=== PATIENT | male | born 1960 | race Two or more races ===

== ENCOUNTER 2019-03-25 21:20 | Emergency (ER) | payer BC ==
[~2019-03-25] VITALS: Ht 157.5 cm; Wt 90.7 kg
--- NOTE | 2019-03-25 21:35 | NUR ---
Pt provided urine sample, sent to lab.
--- NOTE | 2019-03-25 21:35 | NUR ---
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 Per patient, his urine was clear earlier today and after he went to the gym he started to have some blood in his urine. Pt is A/O x 4 and speaking in complete sentences.
[2019-03-25 22:05] LABS: *BLOOD, URINE 3+ (NEGATIVE); *CLARITY,URINE SLIGHTLY CLOUDY (CLEAR); *COLOR,URINE RED (YELLOW); *KETONES,URINE TRACE (NEGATIVE); NITRITE, URINE NEGATIVE (NEGATIVE); UGLUCOSE 2+ (NEGATIVE)
[2019-03-25 22:07] LABS: BASOPHILS # (AUTO) 0.1 K/uL (0.0-8.0); BASOPHILS % (AUTO) 0.8 % (0.0-2.0); EOSINOPHILS # (AUTO) 0.2 K/uL (0.0-0.7); EOSINOPHILS % (AUTO) 1.7 % (0.0-7.0); HEMOGLOBIN 14.2 g/dL (12.5-16.3); LYMPHOCYTES # (AUTO) 2.5 K/uL (20.0-40.0); LYMPHOCYTES % (AUTO) 23.5 % (20.5-51.5); MEAN CORPUSCULAR HEMOGLOBIN 31.2 uug (23.8-33.4); MEAN CORPUSCULAR HGB CONC 35 g/dL (32.5-36.3); MEAN CORPUSCULAR VOLUME 90.1 fL (73.0-96.2); MONOCYTES % (AUTO) 9.3 % (0.0-11.0); NEUTROPHILS # (AUTO) 6.8 K/uL (1.8-8.9); NEUTROPHILS % (AUTO) 64.7 % (38.5-71.5); PLATELET COUNT (AUTO) 189 K/uL (152-348); RED BLOOD CELL COUNT(AUTO) 4.54 MIL/uL (4.06-5.63); WHITE BLOOD COUNT (AUTO) 10.5 K/uL (3.6-10.2)
[2019-03-25 22:14] LABS: *BILIRUBIN,URIN 1+ (NEGATIVE); LEUKOCYTE ESTERASE ,URINE 2+ (NEGATIVE)
[2019-03-25 22:14] LABS: CREATININE 1.2 mg/dL (0.6-1.3); POTASSIUM 4.3 mmol/L (3.5-5.1)
[2019-03-25 22:20] LABS: BILIRUBIN,DIRECT 0.1 mg/dL (0.0-0.2); BILIRUBIN,TOTAL 0.4 mg/dL (0.2-1.0); TOTAL PROTEIN, SERUM 7.1 g/dL (6.4-8.2)
[2019-03-25 22:21] LABS: RBC,URINE TNTC /HPF (0-3); SQUAMOUS EPITHELIAL CELL,UR FEW /HPF (NONE SEEN)
[2019-03-25] MEDS ORDERED: IOHEXOL 300MG/ML 100 ML INFUS..BTL ONE (22:46)
[2019-03-25] MEDS ORDERED: SWABABLE VALVE TRANSFER SET EA MC ONE (22:46)
[2019-03-25] MEDS ORDERED: IOPAMIDOL 15 ML VIAL IT ONE (22:46)
[2019-03-25] MEDS ORDERED: CEphaleXIN 500 MG CAPSULE ONE (23:58)
[2019-03-26] MEDS ORDERED: CEphaleXIN 500 MG CAPSULE PO ONE
[2019-03-26] MEDS ORDERED: IV NORMAL SALINE 1000 ML BAG IV ONE
--- NOTE | 2019-03-26 01:07 | NUR ---
IV removed. Catheter intact and site benign. Pressure and 4x4 gauze applied to site. No bleeding noted. Patient discharged to home in stable conditon. Written and verbal after care instructions given. Patient verbalizes understanding of instructions.
[2019-03-26 01:10] VITALS: BP 152/84
== END 2019-03-26 01:12 | disposition home or self-care (01) ==
LOC: ER 21:23
DX: R31.0 Gross hematuria (principal); E11.9 Type 2 diabetes mellitus without complications
CPT/HCPCS: 36415; 74178; 80048; 80076; 81000; 81001; 85025; 85730; 87077; 87086; 87186; 99284; Q9967 ×2; A4663; J7030

== ENCOUNTER 2019-04-08 12:00 | Day surgery (SDC) | payer BC ==
[2019-04-08] MEDS ORDERED: PROPOFOL 200 MG/20 ML BOTTLE IV ONE (12:01)
[2019-04-08] MEDS ORDERED: [UNRECOGNIZED DRUG - OTHER] TP ONE (12:01)
[2019-04-08] MEDS ORDERED: SIMETHICONE 40 MG/0.6 ML, 30ML BOTTLE MC ONE (12:01)
[2019-04-08] MEDS ORDERED: IRR STERIL WATER FOR IRR 1000 ML BOTTLE IR ONE ×2 (12:01)
[2019-04-08] MEDS ORDERED: LIDOCAINE 2% 30 ML JELLY MC ONE (12:01)
[2019-04-08 12:35] LABS: EOSINOPHILS % (AUTO) 1.2 % (0.0-7.0); HEMOGLOBIN 15.2 g/dL (12.5-16.3)
[2019-04-08 12:36] LABS: *BILIRUBIN,URIN NEGATIVE (NEGATIVE); *BLOOD, URINE 3+ (NEGATIVE); *CLARITY,URINE SLIGHTLY CLOUDY (CLEAR); *COLOR,URINE YELLOW (YELLOW); *KETONES,URINE NEGATIVE (NEGATIVE); *UROBILINOGEN,URINE 0.2 E.U./dl (NORMAL); LEUKOCYTE ESTERASE ,URINE 2+ (NEGATIVE); NITRITE, URINE NEGATIVE (NEGATIVE); UGLUCOSE NEGATIVE (NEGATIVE)
[2019-04-08 12:41] LABS: BASOPHILS # (AUTO) 0.1 K/uL (0.0-8.0); BASOPHILS % (AUTO) 1.1 % (0.0-2.0); CREATININE 1.1 mg/dL (0.6-1.3); EOSINOPHILS # (AUTO) 0.1 K/uL (0.0-0.7); HEMATOCRIT 44.1 % (36.7-47.1); LYMPHOCYTES # (AUTO) 2.4 K/uL (20.0-40.0); LYMPHOCYTES % (AUTO) 24.7 % (20.5-51.5); MEAN CORPUSCULAR HEMOGLOBIN 30.9 uug (23.8-33.4); MEAN CORPUSCULAR HGB CONC 35 g/dL (32.5-36.3); MEAN CORPUSCULAR VOLUME 89.6 fL (73.0-96.2); MONOCYTES # (AUTO) 1.2 K/uL (2.0-10.0); MONOCYTES % (AUTO) 12.5 % (0.0-11.0); NEUTROPHILS # (AUTO) 5.8 K/uL (1.8-8.9); NEUTROPHILS % (AUTO) 60.5 % (38.5-71.5); PLATELET COUNT (AUTO) 234 K/uL (152-348); RED BLOOD CELL COUNT(AUTO) 4.92 MIL/uL (4.06-5.63); WHITE BLOOD COUNT (AUTO) 9.7 K/uL (3.6-10.2)
[2019-04-08 12:47] LABS: BILIRUBIN,TOTAL 0.7 mg/dL (0.2-1.0); TOTAL PROTEIN, SERUM 8.2 g/dL (6.4-8.2)
[2019-04-08 12:49] LABS: RBC,URINE TNTC /HPF (0-3)
[2019-04-08 12:51] LABS: BACTERIA,URINE FEW /HPF (NONE SEEN); WBC,URINE 50-80 /HPF (0-3)
[2019-04-08 12:52] LABS: MUCUS,URINE FEW /LPF (0-FEW); SQUAMOUS EPITHELIAL CELL,UR FEW /HPF (NONE SEEN)
== END 2019-04-08 16:10 | disposition home or self-care (01) ==
LOC: DS 12:00
PROVIDERS: ATTEND Internal Medicine Gastroenterology
DX: Z12.11 Encounter for screening for malignant neoplasm of colon (principal); K57.30 Diverticulosis of large intestine without perforation or abscess without bleeding; K64.8 Other hemorrhoids; I10 Essential (primary) hypertension; E11.9 Type 2 diabetes mellitus without complications; E66.01 Morbid (severe) obesity due to excess calories; E78.00 Pure hypercholesterolemia, unspecified; J45.909 Unspecified asthma, uncomplicated; Z79.84 Long term (current) use of oral hypoglycemic drugs; Z79.899 Other long term (current) drug therapy; Z82.49 Family history of ischemic heart disease and other diseases of the circulatory system; Z83.3 Family history of diabetes mellitus; Z68.42 Body mass index [BMI] 45.0-49.9, adult
CPT/HCPCS: 36415; 71045; 85025; 85730; 87077; 87086; 93005; A4217; A4663; J3490; J7030

== ENCOUNTER 2024-12-12 22:06 | Inpatient (IN) | payer BC ==
[~2024-12-12] VITALS: Ht 157.5 cm; Wt 86.2 kg
[2024-12-12] MEDS ORDERED: METF-494 PO (22:18)
[2024-12-12] MEDS ORDERED: EMPA25TA PO (22:18)
[2024-12-12] MEDS ORDERED: LOSA25TA27 PO (22:18)
[2024-12-12 22:52] LABS: BASOPHILS % (AUTO) 0.6 % (0.0-2.0); EOSINOPHILS % (AUTO) 0.3 % (0.0-7.0); HEMATOCRIT 44.9 % (36.7-47.1); HEMOGLOBIN 15.3 g/dL (12.5-16.3); LYMPHOCYTES # (AUTO) 1.4 K/uL (0.8-4.8); LYMPHOCYTES % (AUTO) 20.2 % (20.5-51.5); MEAN CORPUSCULAR HGB CONC 34 g/dL (32.5-36.3); MONOCYTES # (AUTO) 0.4 K/uL (0.1-1.30); MONOCYTES % (AUTO) 6.4 % (0.0-11.0); NEUTROPHILS # (AUTO) 5.1 K/uL (1.8-8.9); NEUTROPHILS % (AUTO) 72.5 % (38.5-71.5); PLATELET COUNT (AUTO) 169 K/uL (152-348); RED BLOOD CELL COUNT(AUTO) 4.94 MIL/uL (4.06-5.63); RED CELL DISTRIBUTION WIDTH 12.7 % (12.1-16.2)
[2024-12-12 23:05] VITALS: O2SAT 91
[2024-12-12] MEDS: IPRATROPIUM BROMIDE 0.5 MG/2.5 ML NEBU NEB ONE (23:09)
[2024-12-12] MEDS: ALBUTEROL SULFATE 2.5 MG/3 ML NEBU NEB ONE (23:10)
[2024-12-12 23:12] LABS: CALCIUM 8.8 mg/dL (8.5-10.1); CREATININE 1.4 mg/dL (0.6-1.3); DIFFERENTIAL COMMENT 1; POTASSIUM 3.8 mmol/L (3.5-5.1)
[2024-12-12] MEDS: ACETAMINOPHEN 500 MG TABLET PO ONE (23:18)
[2024-12-12 23:19] LABS: ALBUMIN 3.1 g/dL (3.4-5.0); BILIRUBIN,DIRECT 0.3 mg/dL (0.0-0.2); BILIRUBIN,TOTAL 0.8 mg/dL (0.2-1.0); TOTAL PROTEIN, SERUM 7.5 g/dL (6.4-8.2)
[2024-12-12 23:20] VITALS: O2SAT 96
[2024-12-12 23:20] LABS: LACTIC ACID 2.9 mmol/L (0.4-2.0)
[2024-12-12] MEDS: CEFEPIME HCL 2 G in IV DEXTROSE 5% 100 ML IV ONE (23:30)
[2024-12-12] MEDS ORDERED: CEFEPIME HCL 1 G VIAL ONE ×2 (23:38→23:49)
[2024-12-12] MEDS: IV NS 1000 ML 1,000 ML IV ONE (23:43)
[2024-12-13] MEDS ORDERED: REMEDY ESSENTIAL ZINC PASTE 113 GM TP PRN (00:30)
[2024-12-13] MEDS ORDERED: DEXTROSE 50% 50 ML DISP.SYRIN IV PRN (00:30)
[2024-12-13] MEDS ORDERED: MAGNESIUM HYDROXIDE 30 ML LIQUID UDC PO PRN (00:30)
[2024-12-13 00:44] LABS: *BILIRUBIN,URIN NEGATIVE (NEGATIVE); *CLARITY,URINE CLEAR (CLEAR); *COLOR,URINE YELLOW (YELLOW); *KETONES,URINE NEGATIVE (NEGATIVE); *PROTEIN,URINE TRACE (NEGATIVE); LEUKOCYTE ESTERASE ,URINE NEGATIVE (NEGATIVE); NITRITE, URINE NEGATIVE (NEGATIVE); PH,URINE 5.5 (5.0-8.0)
[2024-12-13 00:47] LABS: *BLOOD, URINE TRACE (NEGATIVE); UGLUCOSE 2+ (NEGATIVE)
[2024-12-13 01:10] LABS: BACTERIA,URINE FEW /HPF (NONE SEEN)
[2024-12-13 01:11] LABS: SQUAMOUS EPITHELIAL CELL,UR FEW /HPF (NONE SEEN)
[2024-12-13] MEDS: IV NS 1000 ML 1,000 ML IV PRN (03:55)
[2024-12-13 04:00] VITALS: BP 96/63; TEMP 98.2; O2SAT 93
[2024-12-13] MEDS ORDERED: CEFEPIME HCL 1 G VIAL ONE (04:19)
[2024-12-13] MEDS: CEFEPIME HCL 1 G in IV DEXTROSE 5% 50 ML IV SCH (05:46)
[2024-12-13] MEDS: BLOOD SUGAR DIAGNOSTIC 1 EACH STRIP VI SCH (06:34)
[2024-12-13 07:37] VITALS: BP 104/57; TEMP 98.1; O2SAT 100
[2024-12-13] MEDS ORDERED: EMPAGLIFLOZIN 25 MG TABLET PO SCH (09:00)
[2024-12-13] MEDS ORDERED: Medication Not On Formulary EA (Empagliflozin (Jardiance) 25 MG) PO SCH (09:00)
[2024-12-13] MEDS: ASPIRIN 81 MG TAB.CHEW PO SCH (09:02)
[2024-12-13] MEDS: LOSARTAN POTASSIUM 25 MG TABLET PO SCH (09:03)
[2024-12-13] MEDS: INSULIN REGULAR, HUMAN 1000 UNIT/10 ML VIAL SQ PRN (09:07)
[2024-12-13] MEDS ORDERED: EMPA10TA PO (10:57)
[2024-12-13] MEDS ORDERED: METF-440 PO (10:58)
[2024-12-13 11:00] VITALS: BP 102/59; TEMP 98.7; O2SAT 96
[2024-12-13] MEDS ORDERED: FOLI1TAB94 PO (11:00)
[2024-12-13] MEDS ORDERED: SIMV5TAB59 PO (11:00)
[2024-12-13] MEDS ORDERED: LOSA50TA39 PO (11:00)
[2024-12-13 11:13] VITALS: BP 102/59; TEMP 98.3; O2SAT 96
[2024-12-13] MEDS: ACETAMINOPHEN 325 MG TABLET PO PRN (13:22)
[2024-12-13 15:19] VITALS: BP 101/61; TEMP 100.9; O2SAT 93
[2024-12-13] MEDS: ONDANSETRON 4 MG/2 ML VIAL IV PRN (17:41)
[2024-12-13 19:00] VITALS: BP 107/59; TEMP 98.8; O2SAT 96
[2024-12-14] VITALS (7 sets, daily range): BP systolic 95–136; BP diastolic 50–70; TEMP 97.2–101.1; O2SAT 86–100
[2024-12-14 06:57] LABS: BASOPHILS % (AUTO) 0.3 % (0.0-2.0); EOSINOPHILS % (AUTO) 0.3 % (0.0-7.0); HEMATOCRIT 33.8 % (36.7-47.1); HEMOGLOBIN 11.7 g/dL (12.5-16.3); LYMPHOCYTES # (AUTO) 1.2 K/uL (0.8-4.8); LYMPHOCYTES % (AUTO) 14.1 % (20.5-51.5); MEAN CORPUSCULAR HEMOGLOBIN 32.2 uug (23.8-33.4); MEAN CORPUSCULAR HGB CONC 35 g/dL (32.5-36.3); MEAN CORPUSCULAR VOLUME 92.7 fL (73.0-96.2); MONOCYTES # (AUTO) 1.4 K/uL (0.1-1.30); MONOCYTES % (AUTO) 16.5 % (0.0-11.0); NEUTROPHILS # (AUTO) 5.9 K/uL (1.8-8.9); NEUTROPHILS % (AUTO) 68.8 % (38.5-71.5); PLATELET COUNT (AUTO) 133 K/uL (152-348); RED BLOOD CELL COUNT(AUTO) 3.65 MIL/uL (4.06-5.63); RED CELL DISTRIBUTION WIDTH 12.8 % (12.1-16.2); WHITE BLOOD COUNT (AUTO) 8.6 K/uL (3.6-10.2)
[2024-12-14 07:05] LABS: DIFFERENTIAL COMMENT 1
[2024-12-14 08:47] LABS: CALCIUM 8.4 mg/dL (8.5-10.1); MAGNESIUM 2.1 mg/dL (1.8-2.4); PHOSPHOROUS 2.8 mg/dL (2.5-4.9)
[2024-12-14] MEDS ORDERED: LOSARTAN POTASSIUM 25 MG TABLET PO SCH (09:00)
[2024-12-14] MEDS ORDERED: EMPAGLIFLOZIN 25 MG TABLET PO SCH (09:00)
[2024-12-14 11:51] LABS: LYMPHOCYTES % (MANUAL) 14 % (20-40); MONOCYTES % (MANUAL) 17 % (2-10); NEUTROPHILS % (MANUAL) 69 % (42-75); PLATELET ESTIMATE DECREASED
[2024-12-14] MEDS: INSULIN REGULAR, HUMAN 300 UNITS/3 ML VIAL SQ PRN (21:14)
[2024-12-15] VITALS (8 sets, daily range): BP systolic 108–145; BP diastolic 63–82; TEMP 97.9–101.2; O2SAT 95–97
[2024-12-15 07:38] LABS: BASOPHILS % (AUTO) 0.5 % (0.0-2.0); EOSINOPHILS # (AUTO) 0.1 K/uL (0.0-0.7); EOSINOPHILS % (AUTO) 0.6 % (0.0-7.0); HEMATOCRIT 40.1 % (36.7-47.1); HEMOGLOBIN 13.3 g/dL (12.5-16.3); LYMPHOCYTES # (AUTO) 1.7 K/uL (0.8-4.8); LYMPHOCYTES % (AUTO) 19.6 % (20.5-51.5); MEAN CORPUSCULAR HEMOGLOBIN 31.7 uug (23.8-33.4); MEAN CORPUSCULAR HGB CONC 33 g/dL (32.5-36.3); MEAN CORPUSCULAR VOLUME 95.7 fL (73.0-96.2); MONOCYTES # (AUTO) 1.4 K/uL (0.1-1.30); MONOCYTES % (AUTO) 15.9 % (0.0-11.0); NEUTROPHILS # (AUTO) 5.7 K/uL (1.8-8.9); NEUTROPHILS % (AUTO) 63.4 % (38.5-71.5); PLATELET COUNT (AUTO) 170 K/uL (152-348); RED BLOOD CELL COUNT(AUTO) 4.19 MIL/uL (4.06-5.63); RED CELL DISTRIBUTION WIDTH 13.1 % (12.1-16.2); WHITE BLOOD COUNT (AUTO) 8.9 K/uL (3.6-10.2)
[2024-12-15 07:42] LABS: LYMPHOCYTES % (MANUAL) 0 % (20-40); NEUTROPHILS % (MANUAL) 0 % (42-75)
[2024-12-15] MEDS: METFORMIN HCL 500 MG TABLET PO SCH (17:31)
[2024-12-15] MEDS: SIMVASTATIN 10 MG TABLET PO SCH (20:04)
[2024-12-16 06:19] VITALS: BP 111/62; TEMP 98.6; O2SAT 95
[2024-12-16 08:04] LABS: HIV-1 p24 ANTIGEN NON REACTIVE (NONREACTIVE); HIV-1/2 ANTIBODY NON REACTIVE (NONREACTIVE)
[2024-12-16] MEDS ORDERED: Medication Not On Formulary EA (Empagliflozin (Jardiance) 10 MG) PO SCH (09:00)
[2024-12-16] MEDS: LOSARTAN POTASSIUM 50 MG TABLET PO SCH (09:35)
[2024-12-16] MEDS: FOLIC ACID 1 MG TABLET PO SCH (09:35)
[2024-12-16] MEDS: EMPAGLIFLOZIN 10 MG TABLET PO SCH (09:39)
[2024-12-16] MEDS ORDERED: AMOX-430 PO (10:08)
[2024-12-16] MEDS ORDERED: ASPI81TA31 PO (10:08)
[2024-12-16 11:16] VITALS: BP 141/79; TEMP 98.4; O2SAT 95
[2024-12-16 16:08] VITALS: BP 140/73; TEMP 98.2; O2SAT 94
[2024-12-16 23:35] LABS: PROSTATE SPECIFIC ANTIGEN 1.71 ng/mL (0.00-4.00)
== END 2024-12-16 16:30 | disposition home or self-care (01) | DRG 865 ==
LOC: ER 22:16 → TELE3 12-13 02:22 → MEDSURG3 12-15 10:05
PROVIDERS: ADMIT Nurse Practitioner Acute Care; ATTEND Internal Medicine
DX: B34.9 Viral infection, unspecified (principal); I21.A1 Myocardial infarction type 2; E87.20 Acidosis, unspecified; N17.9 Acute kidney failure, unspecified; E11.9 Type 2 diabetes mellitus without complications; E78.5 Hyperlipidemia, unspecified; I11.9 Hypertensive heart disease without heart failure; Z79.84 Long term (current) use of oral hypoglycemic drugs; Z79.899 Other long term (current) drug therapy; Z87.442 Personal history of urinary calculi
CPT/HCPCS: 36415; 71045; 83605; 83735; 84100; 84153; 84484; 85025; 85651; 85730; 86140; 86803; 87040; 87086; 87806; 93005; 93307; A4606; A4663; A9150; G0378; J0692; J1815; J2405; J3590; J7040

== ENCOUNTER 2025-01-05 18:23 | Inpatient (IN) | payer BC ==
[~2025-01-05] VITALS: Ht 157.5 cm; Wt 86.2 kg
[~2025-01-05 18:23] MED LIST: AMOX-430 PO; ASPI81TA31 PO; EMPA10TA PO; FOLI1TAB94 PO; LOSA50TA39 PO; METF-440 PO; SIMV5TAB59 PO
[2025-01-05 19:13] LABS: BASOPHILS # (AUTO) 0.1 K/UL (0.0-0.2); BASOPHILS % (AUTO) 0.4 % (0.0-2.0); EOSINOPHILS % (AUTO) 0.2 % (0.0-7.0); HEMATOCRIT 44.6 % (36.7-47.1); HEMOGLOBIN 14.9 g/dL (12.5-16.3); LYMPHOCYTES # (AUTO) 1.2 K/uL (0.8-4.8); LYMPHOCYTES % (AUTO) 8.4 % (20.5-51.5); MEAN CORPUSCULAR HEMOGLOBIN 30.5 uug (23.8-33.4); MEAN CORPUSCULAR HGB CONC 33 g/dL (32.5-36.3); MEAN CORPUSCULAR VOLUME 91.7 fL (73.0-96.2); MONOCYTES # (AUTO) 1.2 K/uL (0.1-1.30); MONOCYTES % (AUTO) 8.2 % (0.0-11.0); NEUTROPHILS # (AUTO) 11.9 K/uL (1.8-8.9); NEUTROPHILS % (AUTO) 82.8 % (38.5-71.5); PLATELET COUNT (AUTO) 189 K/uL (152-348); RED BLOOD CELL COUNT(AUTO) 4.87 MIL/uL (4.06-5.63); RED CELL DISTRIBUTION WIDTH 13.5 % (12.1-16.2); WHITE BLOOD COUNT (AUTO) 14.3 K/uL (3.6-10.2)
[2025-01-05 19:17] LABS: DIFFERENTIAL COMMENT 1
[2025-01-05 19:22] LABS: CALCIUM 8.8 mg/dL (8.5-10.1); CREATININE 1.1 mg/dL (0.6-1.3); POTASSIUM 4.4 mmol/L (3.5-5.1)
[2025-01-05 19:27] LABS: ALBUMIN 3.7 g/dL (3.4-5.0); BILIRUBIN,DIRECT 0.3 mg/dL (0.0-0.2); BILIRUBIN,TOTAL 0.8 mg/dL (0.2-1.0); TOTAL PROTEIN, SERUM 7.5 g/dL (6.4-8.2)
[2025-01-05] MEDS ORDERED: CEFTRIAXONE /D5W 50ML IVPB **ER PYXIS IV ONE (20:22)
[2025-01-05] MEDS: CEFTRIAXONE 2 G in IV DEXTROSE 5% 100 ML IV ONE (20:33)
[2025-01-05] MEDS ORDERED: METRONIDAZOLE 500 MG/NS 100ML 100 ML IV ONE (20:35)
[2025-01-05] MEDS: IV NS 1000 ML 1,000 ML IV ONE (20:46)
[2025-01-05] MEDS ORDERED: IOHEXOL 350 100 ML INFUS..BTL ONE (20:49)
[2025-01-05] MEDS ORDERED: SWABABLE VALVE TRANSFER SET EA MC ONE (20:49)
[2025-01-05] MEDS ORDERED: IV NORMAL SALINE 250 ML IV ONE (20:49)
[2025-01-05] MEDS: METRONIDAZOLE 500 MG/NS 100 ML PIGGYBACK IV ONE (20:50)
[2025-01-06] MEDS ORDERED: ONDANSETRON 4 MG/2 ML VIAL IV PRN (00:15)
[2025-01-06] MEDS ORDERED: MAGNESIUM HYDROXIDE 30 ML LIQUID UDC PO PRN (00:15)
[2025-01-06] MEDS ORDERED: REMEDY ESSENTIAL ZINC PASTE 113 GM TP PRN (00:15)
[2025-01-06] MEDS: ACETAMINOPHEN 325 MG TABLET PO PRN (00:38)
[2025-01-06 01:00] VITALS: BP 126/80; TEMP 100.9; O2SAT 96
[2025-01-06] MEDS ORDERED: METRONIDAZOLE 500 MG/NS 100ML 100 ML IV ONE (03:59)
[2025-01-06 04:26] VITALS: BP 106/66; TEMP 99.3; O2SAT 98
[2025-01-06] MEDS: METRONIDAZOLE 500 MG/NS 100ML 500 MG in PREMIXED 1 EACH IV SCH (05:13)
[2025-01-06] MEDS: PANTOPRAZOLE SODIUM 40 MG TABLET.DR PO SCH (06:22)
[2025-01-06] MEDS: ENOXAPARIN SODIUM 40 MG/0.4 ML DISP.SYRIN SQ SCH (09:23)
[2025-01-06] MEDS ORDERED: DEXTROSE 50% 50 ML DISP.SYRIN IV PRN (10:15)
[2025-01-06] MEDS ORDERED: HOME MED MISCELLANEOUS XX SCH (10:15)
[2025-01-06] MEDS: HYDROCODONE/APAP 10-325 MG TABLET PO PRN (11:46)
[2025-01-06] MEDS: INSULIN REGULAR, HUMAN 1000 UNIT/10 ML VIAL SQ PRN (11:47)
[2025-01-06] MEDS: BLOOD SUGAR DIAGNOSTIC 1 EACH STRIP VI SCH (11:49)
[2025-01-06 11:50] VITALS: BP 118/81; TEMP 98; O2SAT 95
[2025-01-06] MEDS ORDERED: ERGO500040 PO (11:51)
[2025-01-06] MEDS ORDERED: ASCO500C18 PO (11:52)
[2025-01-06 16:05] VITALS: BP 116/66; TEMP 98.7; O2SAT 98
[2025-01-06 19:00] VITALS: BP 130/80; TEMP 99.5; O2SAT 98
[2025-01-06] MEDS: SIMVASTATIN 10 MG TABLET PO SCH (20:33)
[2025-01-06] MEDS: CEFTRIAXONE 1 G in IV DEXTROSE 5% 50 ML IV SCH (20:41)
[2025-01-07 06:00] VITALS: BP 113/70; TEMP 99.4; O2SAT 94
[2025-01-07 06:47] LABS: BASOPHILS # (AUTO) 0.1 K/UL (0.0-0.2); BASOPHILS % (AUTO) 0.6 % (0.0-2.0); EOSINOPHILS # (AUTO) 0.2 K/uL (0.0-0.7); EOSINOPHILS % (AUTO) 1.4 % (0.0-7.0); HEMATOCRIT 41.2 % (36.7-47.1); HEMOGLOBIN 13.8 g/dL (12.5-16.3); LYMPHOCYTES # (AUTO) 1.9 K/uL (0.8-4.8); LYMPHOCYTES % (AUTO) 14.6 % (20.5-51.5); MEAN CORPUSCULAR HEMOGLOBIN 30.9 uug (23.8-33.4); MEAN CORPUSCULAR HGB CONC 34 g/dL (32.5-36.3); MEAN CORPUSCULAR VOLUME 92.2 fL (73.0-96.2); MONOCYTES # (AUTO) 1.3 K/uL (0.1-1.30); MONOCYTES % (AUTO) 10.1 % (0.0-11.0); NEUTROPHILS # (AUTO) 9.3 K/uL (1.8-8.9); NEUTROPHILS % (AUTO) 73.3 % (38.5-71.5); PLATELET COUNT (AUTO) 154 K/uL (152-348); RED BLOOD CELL COUNT(AUTO) 4.47 MIL/uL (4.06-5.63); RED CELL DISTRIBUTION WIDTH 13.7 % (12.1-16.2); WHITE BLOOD COUNT (AUTO) 12.7 K/uL (3.6-10.2)
[2025-01-07 06:59] LABS: DIFFERENTIAL COMMENT 1
[2025-01-07 07:01] LABS: CALCIUM 8.6 mg/dL (8.5-10.1); MAGNESIUM 2.2 mg/dL (1.8-2.4); PHOSPHOROUS 3.6 mg/dL (2.5-4.9); POTASSIUM 3.8 mmol/L (3.5-5.1)
[2025-01-07] MEDS ORDERED: FOLIC ACID 1 MG TABLET PO SCH (09:00)
[2025-01-07] MEDS: ASCORBIC ACID 500 MG TABLET PO SCH (09:16)
[2025-01-07] MEDS: LOSARTAN POTASSIUM 50 MG TABLET PO SCH (09:16)
[2025-01-07] MEDS: ASPIRIN 81 MG TAB.CHEW PO SCH (09:17)
[2025-01-07] MEDS: HYDROCODONE/APAP 5-325MG TABLET PO PRN (09:17)
[2025-01-07] MEDS: EMPAGLIFLOZIN 10 MG TABLET PO SCH (09:20)
[2025-01-07 11:45] VITALS: BP 136/79; TEMP 98.2; O2SAT 94
[2025-01-07 16:01] VITALS: BP 124/75; TEMP 98; O2SAT 94
[2025-01-07 19:45] VITALS: BP 129/79; TEMP 98.7; O2SAT 95
[2025-01-08 06:05] VITALS: BP 106/63; TEMP 98.1; O2SAT 93
[2025-01-08 10:58] VITALS: BP 114/77; TEMP 97.6; O2SAT 97
[2025-01-08 15:05] VITALS: BP 130/58; TEMP 98.2; O2SAT 95
[2025-01-08 19:00] VITALS: BP 113/73; TEMP 98.3; O2SAT 95
[2025-01-08] MEDS: ZOLPIDEM 5 MG TABLET PO PRN (21:34)
[2025-01-09 04:00] VITALS: BP 117/69; TEMP 98.4; O2SAT 97
[2025-01-09] MEDS: AMOXICILLIN-CLAVUL 875-125MG TABLET PO SCH (08:22)
[2025-01-09] MEDS: ERGOCALCIFEROL 50,000 UNIT CAPSULE PO SCH (08:29)
[2025-01-09] MEDS ORDERED: HYDR-3972 PO (09:11)
[2025-01-09] MEDS ORDERED: AMOX-430 PO (09:11)
[2025-01-09] MEDS ORDERED: ONDA4TAB5 PO (09:12)
[2025-01-09 11:36] VITALS: BP 148/83; TEMP 98.2; O2SAT 98
== END 2025-01-09 13:50 | disposition home or self-care (01) | DRG 728 ==
LOC: ER 18:23 → MEDSURG3 01-06 00:11
PROVIDERS: ADMIT Student in an Organized Health Care Education/Training Program; ATTEND Nurse Practitioner Acute Care
PROC: 0V953ZX Drainage of Scrotum, Percutaneous Approach, Diagnostic (ICD-10-PCS; principal; 2025-01-07)
DX: N49.2 Inflammatory disorders of scrotum (principal); R00.0 Tachycardia, unspecified; E11.9 Type 2 diabetes mellitus without complications; B96.89 Other specified bacterial agents as the cause of diseases classified elsewhere; E78.5 Hyperlipidemia, unspecified; E66.9 Obesity, unspecified; N48.89 Other specified disorders of penis; N43.3 Hydrocele, unspecified; R59.0 Localized enlarged lymph nodes; I10 Essential (primary) hypertension; J45.909 Unspecified asthma, uncomplicated; Z79.84 Long term (current) use of oral hypoglycemic drugs; Z68.34 Body mass index [BMI] 34.0-34.9, adult; Z87.891 Personal history of nicotine dependence; Z87.442 Personal history of urinary calculi
CPT/HCPCS: 36415; 72193; 83605; 83735; 84100; 85025; 86140; 87040; G0378; J0696; J1650; J1815; J3490; J7040; Q9967